=== PATIENT | female | born 1985 | race Caucasian/White ===

== ENCOUNTER 2023-02-25 14:45 | Inpatient (IN) | payer OTHER ==
[~2023-02-25] VITALS: Ht 157.5 cm; Wt 54.4 kg
[2023-02-25] MEDS ORDERED: [UNRECOGNIZED DRUG - CODE] PO (14:59)
[2023-02-25] MEDS ORDERED: PROP10TA73 PO (14:59)
[2023-02-25] MEDS ORDERED: PANT-31 PO (14:59)
[2023-02-25] MEDS ORDERED: RISP0.5T66 PO (14:59)
[2023-02-25] MEDS ORDERED: ETON68IM4 SD (14:59)
[2023-02-25] MEDS ORDERED: FLUO10CA24 PO (14:59)
[2023-02-25] MEDS ORDERED: NITR-75 PO (14:59)
[2023-02-25] MEDS ORDERED: ACETAMINOPHEN 500 MG TABLET PO ONE (15:45)
[2023-02-25] MEDS ORDERED: SODIUM CHLORIDE 0.9% 1,000 ML IV ONE ×3 (15:45→17:45)
[2023-02-25 16:05] LABS: BASOPHILS % (AUTO) 0.9 % (0.0-2.0); EOSINOPHILS % (AUTO) 2.6 % (1.0-6.0); HEMATOCRIT 37.4 % (36-46); HEMOGLOBIN 12.2 g/dL (12.0-16.0); LYMPHOCYTES # (AUTO) 3.3 K/uL (1.0-4.8); LYMPHOCYTES % (AUTO) 30.4 % (22.0-44.0); MEAN CORPUSCULAR HEMOGLOBIN 27.1 pg (26.0-34.0); MEAN CORPUSCULAR HGB CONC 32.5 G/dL (31.0-37.0); MEAN CORPUSCULAR VOLUME 83 fL (80-100); MONOCYTES # (AUTO) 1.6 K/uL (0.1-1.0); MONOCYTES % (AUTO) 14.5 % (2.0-9.0); NEUTROPHILS # (AUTO) 5.6 K/uL (1.8-7.7); NEUTROPHILS % (AUTO) 51.6 % (40.0-70.0); PLATELET COUNT (AUTO) 365 K/uL (150-450); RED BLOOD CELL COUNT(AUTO) 4.49 MIL/uL (4.00-5.20); RED CELL DISTRIBUTION WIDTH 16.5 % (11.5-14.5)
[2023-02-25 16:15] LABS: ANION GAP 17 mmol/L (8-16); CALCIUM, TOTAL 9.4 mg/dL (8.8-10.5); CARBON DIOXIDE 18 mmol/L (22-29); CHLORIDE 103 mmol/L (98-107); GLOMERULAR FILTR. RATE CALC > 60 mL/min (>60); GLUCOSE,RANDOM 78 mg/dL (70-110); POTASSIUM 3.4 mmol/L (3.5-5.1); SODIUM SERUM 138 mmol/L (136-145)
[2023-02-25 16:26] LABS: HCG,QUANTITATIVE < 1 mIU/mL (0-6)
[2023-02-25 16:28] LABS: LACTIC ACID 6.5 mmol/L (0.4-2.0)
[2023-02-25] MEDS ORDERED: CefTRIAXone 1 GM/DEXTROSE 50 ML IV ONE ×2 (16:30→20:15)
[2023-02-25] MEDS ORDERED: LORazepam 2 MG/ML VIAL IVP ONE (17:45)
[2023-02-25 18:27] LABS: APPEARANCE,URINE HAZY (CLEAR); BILIRUBIN,URINE NEGATIVE (NEGATIVE); GLUCOSE, URINE (UA) NEGATIVE (NEGATIVE); LEUKOCYTE ESTERASE ,URINE TRACE (NEGATIVE); NITRATE,URINE NEGATIVE (NEGATIVE); OCCULT BLOOD,URINE LARGE (NEGATIVE); PROTEIN,URINE TRACE mg/dL (NEGATIVE); SPECIFIC GRAVITIY, URINE 1.009 (1.003-1.030); UROBILINOGEN,URINE <=1.0 mg/dL (<=1.0)
[2023-02-25 18:38] LABS: RBC,URINE 26-50 /HPF (0-2); SQUAMOUS EPITHELIAL CELL,UR Many /LPF (None Seen)
[2023-02-25 18:39] LABS: BACTERIA,URINE Moderate /HPF (None Seen)
[2023-02-25 19:19] LABS: CREATINE KINASE, TOTAL ONLY 52 U/L (26-192)
[2023-02-25] MEDS ORDERED: KETOROLAC TROMETHAMINE 30 MG/ML VIAL IVP ONE (19:45)
[2023-02-25] MEDS ORDERED: ONDANSETRON HCL 4 MG/2 ML VIAL IVP PRN ×2 (20:15)
[2023-02-25] MEDS ORDERED: ACETAMINOPHEN 325 MG TABLET PO PRN ×2 (20:15)
[2023-02-25 20:50] LABS: ALANINE AMINOTRANSFERASE 13 U/L (12-78); ALBUMIN 3.7 g/dL (3.4-5.0); ALKALINE PHOSPHATASE 96 U/L (46-116); ASPARTATE AMINOTRANSFERASE 14 U/L (15-37); BILIRUBIN,TOTAL 0.2 mg/dL (0.1-1.0); TOTAL PROTEIN, SERUM 7.3 g/dL (6.4-8.2)
[2023-02-25] MEDS: DOCUSATE SODIUM 100 MG CAPSULE PO SCH (21:00)
[2023-02-25] MEDS: RINGERS SOLUTION,LACTATED 1,000 ML IV SCH (21:37)
[2023-02-25] MEDS ORDERED: MORPHINE SULFATE 2 MG/ML SYRINGE IVP ONE (22:30)
[2023-02-25] MEDS ORDERED: RisperiDONE 1 MG TABLET PO ONE (22:30)
[2023-02-25] MEDS ORDERED: [UNRECOGNIZED DRUG - OTHER] PO SCH (22:30)
[2023-02-25] MEDS: HEPARIN SODIUM,PORCINE 5,000 UNITS/ML VIAL SQ SCH (23:18)
[2023-02-26 00:35] VITALS: BP 101/62; PULSE 99; RESP 20; TEMP 97.5
[2023-02-26 02:50] VITALS: BP 100/63; PULSE 95; RESP 18
[2023-02-26 06:09] VITALS: BP 115/77; PULSE 97; RESP 20; TEMP 97.7
[2023-02-26] MEDS: MORPHINE SULFATE 2 MG/ML SYRINGE IVP PRN ×5 (06:32→22:08)
[2023-02-26] MEDS ORDERED: CLON-595 PO (08:02)
[2023-02-26 08:05] LABS: BASOPHILS % (AUTO) 0.9 % (0.0-2.0); HEMATOCRIT 31.4 % (36-46); HEMOGLOBIN 10.4 g/dL (12.0-16.0); LYMPHOCYTES # (AUTO) 1.6 K/uL (1.0-4.8); LYMPHOCYTES % (AUTO) 33.1 % (22.0-44.0); MEAN CORPUSCULAR HEMOGLOBIN 27.6 pg (26.0-34.0); MEAN CORPUSCULAR VOLUME 84 fL (80-100); MONOCYTES # (AUTO) 0.5 K/uL (0.1-1.0); MONOCYTES % (AUTO) 11.5 % (2.0-9.0); NEUTROPHILS # (AUTO) 2.2 K/uL (1.8-7.7); NEUTROPHILS % (AUTO) 45.5 % (40.0-70.0); PLATELET COUNT (AUTO) 225 K/uL (150-450); RED BLOOD CELL COUNT(AUTO) 3.76 MIL/uL (4.00-5.20); RED CELL DISTRIBUTION WIDTH 16.5 % (11.5-14.5)
[2023-02-26 08:15] LABS: ANION GAP 10 mmol/L (8-16); CALCIUM, TOTAL 8.1 mg/dL (8.8-10.5); CARBON DIOXIDE 22 mmol/L (22-29); CHLORIDE 109 mmol/L (98-107); CREATININE 0.39 mg/dL (0.60-1.30); GLOMERULAR FILTR. RATE CALC > 60 mL/min (>60); GLUCOSE,RANDOM 73 mg/dL (70-110); POTASSIUM 3.8 mmol/L (3.5-5.1); SODIUM SERUM 141 mmol/L (136-145)
[2023-02-26 08:19] VITALS: BP 163/92; PULSE 90; RESP 20; TEMP 98
[2023-02-26] MEDS ORDERED: POTASSIUM CHLORIDE 20 MEQ ER TABLET PO ONE (08:45)
[2023-02-26] MEDS: PANTOPRAZOLE SODIUM 40 MG DR TABLET PO SCH ×2 (09:12→20:22)
[2023-02-26] MEDS: HEPARIN SODIUM,PORCINE 5,000 UNITS/ML VIAL SQ SCH ×2 (09:12→16:42)
[2023-02-26] MEDS: ClonazePAM 1 MG TABLET PO PRN ×2 (09:12→20:22)
[2023-02-26] MEDS: RisperiDONE 1 MG TABLET PO SCH ×3 (09:12→20:22)
[2023-02-26] MEDS: DOCUSATE SODIUM 100 MG CAPSULE PO SCH ×2 (09:12→20:21)
[2023-02-26] MEDS: RINGERS SOLUTION,LACTATED 1,000 ML IV SCH ×2 (09:12→20:21)
[2023-02-26 16:40] VITALS: BP 155/93; PULSE 85; RESP 20; TEMP 97.7
[2023-02-26] MEDS ORDERED: CefTRIAXone SODIUM 2 GM in DEXTROSE 5%-WATER 50 ML IV SCH (18:00)
[2023-02-26 19:48] VITALS: BP 102/68; PULSE 104; RESP 18; TEMP 98
[2023-02-27] MEDS: HEPARIN SODIUM,PORCINE 5,000 UNITS/ML VIAL SQ SCH ×2 (00:04→09:00)
[2023-02-27] MEDS ORDERED: SODIUM CHLORIDE 0.9% 500 ML IV ONE (01:06)
[2023-02-27 03:07] LABS: HEPATITIS C AB (EIA) Non Reactive (Non Reactive)
[2023-02-27 04:11] VITALS: BP 122/77; PULSE 108; RESP 20; TEMP 98.9
[2023-02-27] MEDS: RINGERS SOLUTION,LACTATED 1,000 ML IV SCH ×2 (04:19→12:44)
[2023-02-27] MEDS: MORPHINE SULFATE 2 MG/ML SYRINGE IVP PRN ×2 (05:41→11:25)
[2023-02-27 08:08] VITALS: BP 117/75; PULSE 102; RESP 20; TEMP 98.6
[2023-02-27] MEDS: PANTOPRAZOLE SODIUM 40 MG DR TABLET PO SCH (09:00)
[2023-02-27] MEDS: DOCUSATE SODIUM 100 MG CAPSULE PO SCH (09:00)
[2023-02-27] MEDS: RisperiDONE 1 MG TABLET PO SCH (09:00)
[2023-02-27] MEDS ORDERED: SUMAtriptan SUCCINATE 100 MG TABLET PO PRN (09:30)
[2023-02-27] MEDS ORDERED: CLON-595 PO ×2 (11:23)
[2023-02-27] MEDS ORDERED: RISP1TAB98 PO (11:23)
[2023-02-27] MEDS ORDERED: SUMA100T21 PO (11:23)
[2023-02-27] MEDS ORDERED: CEPH-558 PO (11:34)
== END 2023-02-27 14:00 | disposition home or self-care (01) | DRG 720 ==
LOC: EMS 14:50 → 6N 21:42
PROVIDERS: ADMIT Internal Medicine; ATTEND Internal Medicine
DX: A41.9 Sepsis, unspecified organism (principal); E87.20 Acidosis, unspecified; F20.9 Schizophrenia, unspecified; N10 Acute pyelonephritis; R31.29 Other microscopic hematuria; R65.20 Severe sepsis without septic shock; E87.6 Hypokalemia; F41.9 Anxiety disorder, unspecified; F31.9 Bipolar disorder, unspecified; G43.909 Migraine, unspecified, not intractable, without status migrainosus; N20.0 Calculus of kidney; Z87.440 Personal history of urinary (tract) infections; Z87.442 Personal history of urinary calculi; Z90.49 Acquired absence of other specified parts of digestive tract; Z79.899 Other long term (current) drug therapy; Z88.8 Allergy status to other drugs, medicaments and biological substances
CPT/HCPCS: 74176; 80048; 80076; 81001; 82550; 83605; 83735; 84132; 84702; 85025; 86803; 87040; 87086; 87186; 87340; 93005; 99291; J0696; J1644; J1885; J2060; J2270; J7030; J7040; J7060; J7120